=== PATIENT | female | born 1965 | race Caucasian/White ===

== ENCOUNTER 2021-03-02 14:45 | Outpatient (CLI) | payer OTHER | END 2021-03-02 14:46 | disposition home or self-care (01) | LOC: CSHMAMMO 14:45 | PROVIDERS: ATTEND Internal Medicine | DX: Z13.820 Encounter for screening for osteoporosis (principal); Z78.0 Asymptomatic menopausal state | CPT/HCPCS: 77080 ==

== ENCOUNTER 2021-03-04 12:26 | Outpatient (CLI) | payer OTHER | END 2021-03-04 12:27 | disposition home or self-care (01) | LOC: CSHCT 12:26 | PROVIDERS: ATTEND Student in an Organized Health Care Education/Training Program | DX: J04.0 Acute laryngitis (principal); R05.3 Chronic cough | CPT/HCPCS: 70491; 71260 ==

== ENCOUNTER 2022-02-17 15:36 | Outpatient (CLI) | payer OTHER | END 2022-02-17 15:37 | disposition home or self-care (01) | LOC: CSHCP 15:36 | PROVIDERS: ATTEND Internal Medicine Pulmonary Disease | DX: R06.00 Dyspnea, unspecified (principal); R94.2 Abnormal results of pulmonary function studies | CPT/HCPCS: 94060; 94726; 94729; 94760 ==

== ENCOUNTER 2023-02-07 07:32 | Day surgery (SDC) | payer OTHER ==
[2023-02-03 14:37] VITALS: BMI 30.9
[2023-02-07] MEDS ORDERED: PROPOFOL 40 ML ONE (09:36)
== END 2023-02-07 10:47 | disposition home or self-care (01) ==
LOC: CSHSDC 07:32
PROVIDERS: ATTEND Internal Medicine Gastroenterology
PROC: 0DBN8ZZ Excision of Sigmoid Colon, Via Natural or Artificial Opening Endoscopic (ICD-10-PCS; principal; 2023-02-07)
DX: Z12.11 Encounter for screening for malignant neoplasm of colon (principal); K63.5 Polyp of colon; K57.30 Diverticulosis of large intestine without perforation or abscess without bleeding; K64.9 Unspecified hemorrhoids; K21.9 Gastro-esophageal reflux disease without esophagitis; E11.9 Type 2 diabetes mellitus without complications; F32.A Depression, unspecified; I10 Essential (primary) hypertension; Z88.5 Allergy status to narcotic agent; Z88.8 Allergy status to other drugs, medicaments and biological substances; Z79.899 Other long term (current) drug therapy
CPT/HCPCS: 88305; J2704

== ENCOUNTER 2024-12-10 12:38 | Outpatient (CLI) | payer OTHER | END 2024-12-10 12:39 | disposition home or self-care (01) | LOC: CSHMAMMO 12:38 | PROVIDERS: ATTEND Internal Medicine | DX: N63.25 Unspecified lump in the left breast, overlapping quadrants (principal); N63.10 Unspecified lump in the right breast, unspecified quadrant | CPT/HCPCS: 76642; 77066; G0279 ==